=== PATIENT | female | born 1940 | race Caucasian/White ===

== ENCOUNTER 2022-03-10 15:52 | Inpatient (IN) ==
[2022-03-10] MEDS ORDERED: Iopamidol - 370 500 ML MLS IVP ONE (16:24)
[2022-03-10 17:10] LABS: Basophils # 0.1 K/mcL (0.0-0.2); Basophils % 0.9 %; Eosinophils # 0.2 K/mcL (0.0-0.6); Eosinophils % 3.1 %; Hematocrit 31.1 % (35.3-44.9); Hemoglobin 9.7 g/dL (11.5-15.4); Immature Granulocytes % 0.1 % (0-4); Lymphocytes % 13.5 %; Mean Corpuscular HGB Conc 31.2 g/dL (31.6-35.5); Mean Corpuscular Hemoglobin 26.6 pg (28.0-33.3); Mean Corpuscular Volume 85.4 fL (83.0-100.0); Mean Platelet Volume 9.9 fL (9.4-12.4); Monocytes # 1.4 K/mcL (0.0-1.3); Monocytes % 18.4 %; Neutrophils # 4.8 K/mcL (1.6-8.9); Platelet Count 493 K/mcL (140-400); Red Blood Count 3.64 M/mcL (3.82-4.97); Red Cell Distribution Width 15.9 % (11.5-14.5); White Blood Count 7.5 K/mcL (4.3-11.1)
[2022-03-10 17:27] LABS: Alanine Aminotransferase 9 Units/L (7-52); Albumin 3.7 g/dL (3.5-5.7); Alkaline Phosphatase 272 Units/L (34-104); Aspartate Amino Transferase 26 Units/L (13-39); BUN/Creatinine Ratio 15 (6-26); Bilirubin,Direct 0.3 mg/dL (0.0-0.2); Bilirubin,Indirect 0.4 mg/dL (0.0-1.0); Bilirubin,Total 0.7 mg/dL (0.3-1.0); Blood Urea Nitrogen 16 mg/dL (8-23); Calcium 9.8 mg/dL (8.6-10.3); Carbon Dioxide 19 mEq/L (23-29); Chloride 100 mEq/L (98-107); Globulin 3.6 g/dL (2.4-3.5); Glucose 106 mg/dL (70-105); Lipase 63 Units/L (11-82); Osmolality,Calculated 270 (280-300); Potassium 4.4 mEq/L (3.5-5.1); Sodium 129 mEq/L (136-145); Total Protein 7.3 g/dL (6.4-8.9)
[2022-03-10 17:28] LABS: Troponin I < 0.03 ng/mL (< 0.04)
[2022-03-10 17:40] LABS: Thyroid Stimulating Hormone 1.485 mcIU/mL (0.340-5.600)
[2022-03-10 17:45] LABS: Platelet Estimate Increased (Normal)
[2022-03-10 17:58] LABS: Influenza A PCR Negative (Negative); Influenza B PCR Negative (Negative); Resp. Syncytial Virus PCR Negative (Negative)
[2022-03-10 17:59] LABS: SARS-CoV-2 by PCR (In House) Negative (Negative)
[2022-03-10 18:00] LABS: Bilirubin,Urine Negative (Negative); Blood,Urine Negative (Negative); Clarity,Urine Clear (Clear); Color,Urine Light-Yellow (Yellow); Glucose,Urine (UA) Normal (Normal); Hyaline Casts,Urine Many per lpf (None Seen); Ketones,Urine Negative (Negative); Leukocyte Esterase,Urine Trace (Negative); Mucus,Urine Few per lpf (None-Few); Nitrite,Urine Negative (Negative); Protein,Urine Negative (Neg-Trace); RBC,Urine 0-3 per hpf (0-3); Specific Gravity,Urine 1.011 (1.010-1.025); Squamous Epithelial Cell,Urine Few per hpf (None-Few); Urobilinogen,Urine Normal (Normal); WBC,Urine 0-3 per hpf (0-3)
[2022-03-10] MEDS ORDERED: Furosemide 40 MG/4 ML VIAL IVP ONE (18:25)
[2022-03-10] MEDS ORDERED: Morphine Sulfate 2 MG/ML SYRINGE IVP PRN (20:51)
[2022-03-10] MEDS ORDERED: Naloxone 0.4 MG/ML INJ IVP PRN (21:02)
[2022-03-10] MEDS: Ipratropium/Albuterol Neb 3 ML IH PRN (21:59)
[2022-03-10] MEDS: *HR* HYDROcodone/Acet 5/325 mg TABLET PO PRN (22:56)
[2022-03-10] MEDS ORDERED: MethylPREDNISolone 40 MG/ML VIAL IVP ONE (23:03)
[2022-03-11] MEDS: Budesonide/Formoterol 160/4.5 1 PUFF INH IH SCH ×3 (03:34→21:47)
[2022-03-11] MEDS: *HR* HYDROcodone/Acet 5/325 mg TABLET PO PRN ×2 (05:13→22:53)
[2022-03-11 06:00] LABS: Basophils % 0.7 %; Eosinophils % 0.2 %; Hematocrit 35.2 % (35.3-44.9); Hemoglobin 10.8 g/dL (11.5-15.4); Immature Granulocytes % 0.4 % (0-4); Lymphocytes # 0.4 K/mcL (0.6-4.6); Mean Corpuscular HGB Conc 30.7 g/dL (31.6-35.5); Mean Corpuscular Hemoglobin 25.8 pg (28.0-33.3); Mean Corpuscular Volume 84.2 fL (83.0-100.0); Mean Platelet Volume 9.6 fL (9.4-12.4); Monocytes # 0.1 K/mcL (0.0-1.3); Platelet Count 504 K/mcL (140-400); Red Blood Count 4.18 M/mcL (3.82-4.97); Red Cell Distribution Width 15.9 % (11.5-14.5); Segmented Neutrophils % 87.7 %; White Blood Count 4.5 K/mcL (4.3-11.1)
[2022-03-11 06:06] LABS: INR 1.7; Prothrombin Time 19.1 Seconds (9.4-12.1)
[2022-03-11 06:22] LABS: Calcium 9.9 mg/dL (8.6-10.3); Chol/HDL Ratio 2.5 (0-4.9); Magnesium 1.6 mg/dL (1.6-2.6); Potassium 4.8 mEq/L (3.5-5.1)
[2022-03-11] MEDS ORDERED: Furosemide 40 MG/4 ML VIAL IVP SCH (09:00)
[2022-03-11] MEDS ORDERED: predniSONE 5 MG TABLET PO SCH (09:00)
[2022-03-11] MEDS: predniSONE 20 MG TABLET PO SCH (09:46)
[2022-03-11] MEDS ORDERED: Albuterol 2.5 MG/3 ML NEBULIZER IH PRN (13:24)
[2022-03-11] MEDS ORDERED: Iopamidol - 370 500 ML MLS IVP ONE (13:27)
[2022-03-11] MEDS ORDERED: Artificial Tears SOLN 15 ML BOTTLE BOTH EYES PRN (13:30)
[2022-03-11] MEDS ORDERED: Metoprolol XL (24 HR) Succ 25 MG TAB.ER.24H PO SCH (15:00)
[2022-03-11] MEDS ORDERED: *HR* Warfarin 3 MG TABLET PO ONE (18:00)
[2022-03-11] MEDS ORDERED: Warfarin perPT PO PRN (18:00)
[2022-03-11] MEDS: Acetaminophen 325 MG TABLET PO PRN (18:47)
[2022-03-11] MEDS: Ipratropium/Albuterol Neb 3 ML IH PRN (21:47)
[2022-03-11] MEDS: Melatonin 3 MG TABLET PO PRN (22:53)
[2022-03-12 02:59] LABS: Hematocrit 31.1 % (35.3-44.9); Hemoglobin 9.7 g/dL (11.5-15.4); Mean Corpuscular HGB Conc 31.2 g/dL (31.6-35.5); Mean Corpuscular Hemoglobin 25.7 pg (28.0-33.3); Mean Corpuscular Volume 82.5 fL (83.0-100.0); Mean Platelet Volume 9.3 fL (9.4-12.4); Platelet Count 487 K/mcL (140-400); Red Blood Count 3.77 M/mcL (3.82-4.97); Red Cell Distribution Width 15.9 % (11.5-14.5)
[2022-03-12 03:02] LABS: White Blood Count 9.2 K/mcL (4.3-11.1)
[2022-03-12 03:04] LABS: INR 2.4
[2022-03-12 03:19] LABS: Calcium 9.5 mg/dL (8.6-10.3); Potassium 4.6 mEq/L (3.5-5.1)
[2022-03-12] MEDS ORDERED: 0.9 % Sodium Chloride 1,000 ML IVC SCH (07:45)
[2022-03-12] MEDS ORDERED: Tiotropium 10 INH DOSE IH ONE (07:56)
[2022-03-12] MEDS: Tiotropium 10 INH DOSE IH SCH (07:58)
[2022-03-12] MEDS: Budesonide/Formoterol 160/4.5 1 PUFF INH IH SCH ×2 (07:58→20:09)
[2022-03-12] MEDS ORDERED: NON-FORMULARY MEDICATION 1 EACH EACH (Omeprazole [Prilosec] 40 MG Capsule.Dr) PO SCH (09:00)
[2022-03-12] MEDS ORDERED: NON-FORMULARY MEDICATION 1 EACH EACH (Fluticasone/Umeclidin/Vilanter [Trelegy Ellipta 200- IH SCH (09:00)
[2022-03-12] MEDS: predniSONE 20 MG TABLET PO SCH (09:39)
[2022-03-12] MEDS: Metoprolol XL (24 HR) Succ 25 MG TAB.ER.24H PO SCH (09:40)
[2022-03-12] MEDS: *HR* HYDROcodone/Acet 5/325 mg TABLET PO PRN ×2 (09:45→21:42)
[2022-03-12] MEDS: Ondansetron 4 MG/2 ML VIAL IVP PRN (09:45)
[2022-03-12] MEDS ORDERED: *HR* Warfarin 0.5 MG TABLET PO ONE (18:00)
[2022-03-12] MEDS ORDERED: *HR* Warfarin 1 MG TABLET PO ONE (18:00)
[2022-03-13 04:14] LABS: INR 2.8; Prothrombin Time 31.3 Seconds (9.4-12.1)
[2022-03-13 04:27] LABS: Calcium 9.3 mg/dL (8.6-10.3); Potassium 4.8 mEq/L (3.5-5.1)
[2022-03-13] MEDS: Acetaminophen 325 MG TABLET PO PRN ×2 (06:03→16:04)
[2022-03-13] MEDS: Tiotropium 10 INH DOSE IH SCH (07:31)
[2022-03-13] MEDS: Budesonide/Formoterol 160/4.5 1 PUFF INH IH SCH ×2 (07:31→21:54)
[2022-03-13] MEDS: predniSONE 20 MG TABLET PO SCH (08:38)
[2022-03-13] MEDS: Metoprolol XL (24 HR) Succ 25 MG TAB.ER.24H PO SCH (08:39)
[2022-03-13 09:26] LABS: Basophils # 0.1 K/mcL (0.0-0.2); Basophils % 0.7 %; Eosinophils % 0.1 %; Hematocrit 29.9 % (35.3-44.9); Hemoglobin 9.4 g/dL (11.5-15.4); Immature Granulocytes % 0.4 % (0-4); Lymphocytes # 1.3 K/mcL (0.6-4.6); Lymphocytes % 12.2 %; Mean Corpuscular HGB Conc 31.4 g/dL (31.6-35.5); Mean Corpuscular Hemoglobin 26.5 pg (28.0-33.3); Mean Corpuscular Volume 84.2 fL (83.0-100.0); Mean Platelet Volume 9.6 fL (9.4-12.4); Monocytes # 1.8 K/mcL (0.0-1.3); Monocytes % 16.7 %; Neutrophils # 7.4 K/mcL (1.6-8.9); Platelet Count 439 K/mcL (140-400); Red Blood Count 3.55 M/mcL (3.82-4.97); Red Cell Distribution Width 16.3 % (11.5-14.5); Segmented Neutrophils % 69.9 %; White Blood Count 10.6 K/mcL (4.3-11.1)
[2022-03-13] MEDS: 0.9 % Sodium Chloride 1,000 ML IVC SCH ×2 (11:53→21:02)
[2022-03-13] MEDS: Ondansetron 4 MG/2 ML VIAL IVP PRN (19:54)
[2022-03-13] MEDS: *HR* HYDROcodone/Acet 5/325 mg TABLET PO PRN (21:06)
[2022-03-13 21:52] LABS: Protein/Creatinine Ratio,Urine 0.52 mg/mg (0.00-0.20); Sodium, Urine 12.8 mEq/L
[2022-03-14 02:07] LABS: Calcium 8.8 mg/dL (8.6-10.3); Phosphorous 3.4 mg/dL (2.7-4.5); Potassium 4.9 mEq/L (3.5-5.1); Uric Acid 7.7 mg/dL (2.3-7.6)
[2022-03-14 02:09] LABS: INR 3.3
[2022-03-14 02:19] LABS: Folate 9.7 ng/mL (3.0-16.0)
[2022-03-14 02:20] LABS: Thyroid Stimulating Hormone 0.851 mcIU/mL (0.340-5.600)
[2022-03-14] MEDS: 0.9 % Sodium Chloride 1,000 ML IVC SCH (08:10)
[2022-03-14] MEDS: Metoprolol XL (24 HR) Succ 25 MG TAB.ER.24H PO SCH (08:16)
[2022-03-14] MEDS: predniSONE 20 MG TABLET PO SCH (08:16)
[2022-03-14] MEDS: Tiotropium 10 INH DOSE IH SCH (10:57)
[2022-03-14] MEDS: Budesonide/Formoterol 160/4.5 1 PUFF INH IH SCH ×2 (10:58→20:28)
[2022-03-14] MEDS: Acetaminophen 325 MG TABLET PO PRN (11:04)
[2022-03-14] MEDS: *HR* HYDROcodone/Acet 5/325 mg TABLET PO PRN (21:40)
[2022-03-15] MEDS: *HR* HYDROcodone/Acet 5/325 mg TABLET PO PRN ×2 (03:47→20:08)
[2022-03-15] MEDS: Budesonide/Formoterol 160/4.5 1 PUFF INH IH SCH ×2 (08:08→20:34)
[2022-03-15] MEDS: Tiotropium 10 INH DOSE IH SCH (08:08)
[2022-03-15] MEDS: Metoprolol XL (24 HR) Succ 25 MG TAB.ER.24H PO SCH (09:26)
[2022-03-15 09:27] LABS: INR 2.7; Prothrombin Time 30.1 Seconds (9.4-12.1)
[2022-03-15] MEDS: predniSONE 20 MG TABLET PO SCH (09:27)
[2022-03-15 09:38] LABS: Potassium 4.3 mEq/L (3.5-5.1)
[2022-03-15] MEDS: 0.9 % Sodium Chloride 1,000 ML IVC SCH ×2 (11:10→23:33)
[2022-03-15] MEDS: Acetaminophen 325 MG TABLET PO PRN ×2 (12:25→22:48)
[2022-03-15] MEDS ORDERED: Moderna Covid-19 Vaccine 100MCG/0.5mL IM ONE (16:46)
[2022-03-15] MEDS ORDERED: *HR* Warfarin 1 MG TABLET PO ONE (18:00)
[2022-03-15] MEDS: Melatonin 3 MG TABLET PO PRN (23:33)
[2022-03-16] MEDS: *HR* HYDROcodone/Acet 5/325 mg TABLET PO PRN ×2 (03:08→18:59)
[2022-03-16 05:12] LABS: INR 2.2; Prothrombin Time 24.3 Seconds (9.4-12.1)
[2022-03-16 05:32] LABS: Calcium 8.7 mg/dL (8.6-10.3); Potassium 5.5 mEq/L (3.5-5.1)
[2022-03-16] MEDS: Budesonide/Formoterol 160/4.5 1 PUFF INH IH SCH ×2 (07:32→22:14)
[2022-03-16] MEDS: Tiotropium 10 INH DOSE IH SCH (07:32)
[2022-03-16] MEDS: Insulin LISPRO 300 UNITS/3 ML VIAL SUBQ SCH ×3 (08:08→17:08)
[2022-03-16] MEDS: Metoprolol XL (24 HR) Succ 25 MG TAB.ER.24H PO SCH (08:34)
[2022-03-16] MEDS: Ondansetron 4 MG/2 ML VIAL IVP PRN (08:38)
[2022-03-16] MEDS: Insulin DETEMIR 100 UNIT/ML X5UNITS SUBQ SCH (09:09)
[2022-03-16] MEDS ORDERED: SODIUM ZIRCONIUM CYCLOSILICATE 5 GM POWD.PACK PO SCH (11:30)
[2022-03-16] MEDS ORDERED: *HR* Warfarin 1 MG TABLET PO ONE (18:00)
[2022-03-16] MEDS: Melatonin 3 MG TABLET PO PRN (20:53)
[2022-03-17] MEDS: *HR* HYDROcodone/Acet 5/325 mg TABLET PO PRN (01:36)
[2022-03-17 03:17] LABS: Prothrombin Time 21.7 Seconds (9.4-12.1)
[2022-03-17 03:41] LABS: Calcium 8.8 mg/dL (8.6-10.3); Potassium 4.5 mEq/L (3.5-5.1)
[2022-03-17 07:53] VITALS: BP 147/94; PULSE 109; TEMP 98.1
[2022-03-17] MEDS: Insulin DETEMIR 100 UNIT/ML X5UNITS SUBQ SCH (08:06)
[2022-03-17] MEDS: Insulin LISPRO 300 UNITS/3 ML VIAL SUBQ SCH ×2 (08:06→12:28)
[2022-03-17] MEDS: Budesonide/Formoterol 160/4.5 1 PUFF INH IH SCH (08:06)
[2022-03-17] MEDS: Tiotropium 10 INH DOSE IH SCH (08:06)
[2022-03-17] MEDS: Metoprolol XL (24 HR) Succ 25 MG TAB.ER.24H PO SCH (08:19)
[2022-03-17 12:26] VITALS: O2SAT 99
[2022-03-17] MEDS ORDERED: *HR* Warfarin 1 MG TABLET PO ONE (18:00)
[2022-03-19 05:47] LABS: Alpha 2 Globulin (PEP) 0.96 g/dL (0.48-1.05); Beta Globulin (PEP) 0.89 g/dL (0.48-1.10)
[2022-03-19 10:14] LABS: Immunoglobulin G 914 mg/dL (768-1632); Immunoglobulin M 209 mg/dL (35-263)
[2022-03-19 10:17] LABS: IFE Reflexed IFE Done; Immunoglobulin A 323 mg/dL (68-408)
== END 2022-03-17 15:33 | disposition home health service (06) | DRG 190 ==
LOC: 3BNU 15:52 → EMEROOARM 15:52 → SUATTDRO 21:11 → 3BNU 22:15
PROVIDERS: ADMIT Internal Medicine; ATTEND Internal Medicine